=== PATIENT | male | born 2000 | race American Indian/Alaskan Native ===

== ENCOUNTER 2020-12-07 04:56 | Emergency (ER) | payer MEDICAID, OTHER ==
--- NOTE | 2020-12-07 06:17 | EDM.PDOC ---
ED HPI GENERAL MEDICAL PROBLEM - General Chief Complaint: Upper Extremity Injury/Pain Stated Complaint: RING NEEDS CUT OFF FINGER. RIGHT RING FINGER Time Seen by Provider: 12/07/20 05:15 Source of Information: Reports: Patient, RN, RN Notes Reviewed History Limitations: Reports: No Limitations - History of Present Illness INITIAL COMMENTS - FREE TEXT/NARRATIVE: Hermelindo is a 20 y/o male who presents to the ED via personal vehicle with complaints of a ring stuck on his right fourth digit. The patient states the stainless steel ring has been in place for approximately eight hours. He has been attempted to remove the ring at home with lubrication, string, and cold water but has had no success. He denies loss of motor or sensory function to the digit. Right Finger-Ring Pain Score (Numeric/FACES): 6 - Related Data Allergies Allergy/AdvReac Type Severity Reaction Status Date / Time No Known Allergies Allergy Verified 10/09/18 07:59 Past Medical History - Past Health History Medical/Surgical History: Denies Medical/Surgical History HEENT History: Reports: None Cardiovascular History: Reports: None Respiratory History: Reports: None Gastrointestinal History: Reports: None Genitourinary History: Reports: None Musculoskeletal History: Reports: None Neurological History: Reports: None Psychiatric History: Reports: None Endocrine/Metabolic History: Reports: None Hematologic History: Reports: None Dermatologic History: Reports: None - Infectious Disease History Infectious Disease History: Reports: None Social & Family History - Family History Family Medical History: No Pertinent Family History - Tobacco Use Tobacco Use Status *Q: Never Tobacco User - Caffeine Use Caffeine Use: Reports: Soda - Recreational Drug Use Recreational Drug Use: No Review of Systems - Review of Systems Review Of Systems: Comprehensive ROS is negative, except as noted in HPI. ED EXAM, GENERAL - Physical Exam Exam: See Below Exam Limited By: No Limitations General Appearance: Alert, Anxious Eye Exam: Bilateral Eye: EOMI, Normal Inspection Ears: Normal External Exam, Hearing Grossly Normal Nose: Normal Inspection, Normal Mucosa, No Blood Throat/Mouth: Normal Inspection, Normal Oropharynx, Normal Voice, No Airway Compromise Head: Atraumatic, Normocephalic Neck: Normal Inspection, Supple, Non-Tender, Full Range of Motion Respiratory/Chest: No Respiratory Distress, Lungs Clear, Chest Non-Tender Cardiovascular: Normal Peripheral Pulses, Regular Rate, Rhythm, No Gallop, No Murmur, No Rub Peripheral Pulses: 2+: Radial (L), Radial (R) GI/Abdominal: Normal Bowel Sounds, Soft Extremities: Normal Range of Motion, Normal Capillary Refill, Joint Swelling (To knuckes of right fourth digit), Arm Pain (To right fourth digit), Redness (To right fourth digit). No: Increased Warmth, Mottled, Pallor Neurological: Alert, Oriented, CN II-XII Intact, Normal Cognition, Normal Gait, No Motor/Sensory Deficits Psychiatric: Anxious Skin Exam: Warm, Dry, Intact, No Rash, Erythema (To right fourth digit) Lymphatic: No Adenopathy Course - Vital Signs Last Recorded V/S: Last Vital Signs Temp 99.5 F 12/07/20 07:16 Pulse 90 12/07/20 07:16 Resp 18 12/07/20 07:16 BP 158/103 H 12/07/20 07:16 Pulse Ox 98 12/07/20 07:16 - Re-Assessments/Exams Free Text/Narrative Re-Assessment/Exam: 12/07/20 Ring successfully removed from fourth digit via electric cutter tool and manual cutter tool. Patient denies loss of motor or sensory function to the digit. Supportive care for swelling and pain to digit reviewed, as well as red flag sign and symptoms which would warrant reevaluation. Patient verbalized understanding and agreement with the plan of care. Departure - Departure Time of Disposition: 07:14 Disposition: Home, Self-Care 01 Condition: Good Clinical Impression: Ring or other jewelry causing external constriction, initial encounter - Discharge Information *PRESCRIPTION DRUG MONITORING PROGRAM REVIEWED*: Not Applicable *COPY OF PRESCRIPTION DRUG MONITORING REPORT IN PATIENT JOAQUIN: Not Applicable Forms: ED Department Discharge Additional Instructions: 1.) Continue applying ice to the affected finger as swelling persists. 2.) You may take ibuprofen (Motrin/Advil) 400-800mg every six hours, as pain and swelling persist. You may also take acetaminophen (Tylenol) 650-1000mg every six hours, as pain persists. You may stagger these medications so you are taking a dose every three hours. \ Sepsis Event Note (ED) - Evaluation Sepsis Screening Result: No Definite Risk - Focused Exam Vital Signs: Vital Signs Temp Pulse Resp BP Pulse Ox 12/07/20 07:16 99.5 F 90 18 158/103 H 98
== END 2020-12-07 07:26 | disposition home or self-care (01) ==
LOC: DL.ED 04:56
DX: S60.444A External constriction of right ring finger, initial encounter (principal); W49.04XA Ring or other jewelry causing external constriction, initial encounter
CPT/HCPCS: 99282